=== PATIENT | female | born 1945 | race Caucasian/White ===

== ENCOUNTER 2020-03-20 13:44 | Emergency (ER) | payer OTHER ==
[~2020-03-20] VITALS: Ht 170.2 cm; Wt 68.0 kg
[~2020-03-20 13:44] MED LIST: AMITRIPTYLINE H10 M1 PO; CODEINE SULFATE15 MG PO; CYMBALTA20 MG PO; LEVAQUIN 500 M500 MG PO; LIPITOR10 MG PO; LOPERAMIDE 2 MG2 M1 PO; MACROBID 100 M100 M1 PO; MACRODANTIN100 MG PO; MS CONTIN 30 MG30 MG PO; OXYCONTIN CR 1010 M1 PO; PROVENTIL IH; ZOFRAN ODT4 MG PO; ZPAK PO; [UNRECOGNIZED DRUG - OTHER] PO
[2020-03-20] MEDS ORDERED: KEFLEX500 M1 PO (15:52)
[2020-03-20 17:31] VITALS: BP 93/68
== END 2020-03-20 17:33 | disposition home or self-care (01) ==
LOC: ER 13:44
DX: S81.812A Laceration without foreign body, left lower leg, initial encounter (principal); Z98.890 Other specified postprocedural states; Z79.2 Long term (current) use of antibiotics; Z79.899 Other long term (current) drug therapy; W25.XXXA Contact with sharp glass, initial encounter; Y93.89 Activity, other specified; Y92.098 Other place in other non-institutional residence as the place of occurrence of the external cause; Y99.8 Other external cause status